=== PATIENT | female | born 1930 | race Caucasian/White ===

== ENCOUNTER → 2017-05-19 | Outpatient (CLI) | payer MEDICARE ==
[2017-05-19 11:13] LABS: ASPARTATE AMINO TRANSFERASE 23 U/L (15-37); BLOOD UREA NITROGEN 18 mg/dL (7-18)
== END | disposition home or self-care (01) ==
LOC: CFH 08:45
PROVIDERS: ATTEND Physician Assistant
DX: I11.0 Hypertensive heart disease with heart failure (principal); I50.42 Chronic combined systolic (congestive) and diastolic (congestive) heart failure; I48.0 Paroxysmal atrial fibrillation; Z95.0 Presence of cardiac pacemaker
CPT/HCPCS: 36415; 80053; 80061; 84436; 84443; 84481; 85610; 85730

== ENCOUNTER 2018-07-23 10:15 | Day surgery (SDC) | payer MEDICARE ==
[~2018-07-23] VITALS: Ht 166.4 cm; Wt 63.6 kg
[2018-07-23] MEDS ORDERED: SODIUM CHLORIDE 0.9% 1,000 ML IV SCH (10:49)
[2018-07-23] MEDS ORDERED: VANCOMYCIN PMX 1GM/200ML 200 ML IVPB ONE (11:00)
[2018-07-23] MEDS ORDERED: ERGO500017 PO (11:24)
[2018-07-23] MEDS ORDERED: SERT50TA5 PO (11:24)
[2018-07-23] MEDS ORDERED: AMIO200T42 PO (11:24)
[2018-07-23] MEDS ORDERED: FLUT9.9S PO (11:24)
[2018-07-23] MEDS ORDERED: OMEP-110 PO (11:24)
[2018-07-23] MEDS ORDERED: WARF2.5T73 PO (11:24)
[2018-07-23 11:30] LABS: BASOPHILS # (AUTO) 0.02 x10^3/uL (0-0.1); BASOPHILS % (AUTO) 1 % (0-1); EOSINOPHILS % (AUTO) 3 % (1-7); LYMPHOCYTES # (AUTO) 0.85 x10^3/uL (1-3.4); LYMPHOCYTES % (AUTO) 23 % (22-44); MD NO; MEAN CORPUSCULAR HEMOGLOBIN 33.1 pg (27.0-34.8); MEAN CORPUSCULAR VOLUME 97.3 fL (80-100); MEAN PLATELET VOLUME 8.6 fL (7.4-10.4); MONOCYTES # (AUTO) 0.37 x10^3/uL (0.2-0.8); MONOCYTES % (AUTO) 10 % (2-9); NEUTROPHILS # (AUTO) 2.33 x10^3/uL (1.8-6.8); NEUTROPHILS % (AUTO) 64 % (42-75); PLATELET COUNT 148 x10^3/uL (130-400); RED BLOOD COUNT 3.73 x10^6/uL (3.82-5.3); RED CELL DISTRIBUTION WIDTH 14.6 % (9.6-15.2)
[2018-07-23 11:40] LABS: INTERNATIONAL NORMALIZED RATIO 1.51 (0.93-1.1); PROTHROMBIN TIME 15.6 Seconds (9.6-11.5)
[2018-07-23] MEDS ORDERED: VANCOMYCIN 500 MG ONE (11:51)
[2018-07-23] MEDS ORDERED: FENTANYL PF 100 MCG/2ML ONE (11:51)
[2018-07-23] MEDS ORDERED: MIDAZOLAM 1 MG/ML, 2ML ONE (11:51)
[2018-07-23] MEDS ORDERED: LIDOCAINE/PF 1%, 30ML ONE (11:52)
[2018-07-23] MEDS ORDERED: VANCOMYCIN PMX 1GM/200ML 200 ML ONE (11:52)
[2018-07-23 12:41] LABS: ANION GAP 9 mmol/L (5-15); CALCIUM 8.7 mg/dL (8.5-10.1); CHLORIDE 110 mmol/L (98-107)
[2018-07-23 12:43] LABS: CREATININE 1.13 mg/dL (0.55-1.02)
== END 2018-07-23 15:18 | disposition home or self-care (01) ==
LOC: CACL 10:15
PROVIDERS: ATTEND Internal Medicine Cardiovascular Disease
DX: Z45.010 Encounter for checking and testing of cardiac pacemaker pulse generator [battery] (principal); I48.0 Paroxysmal atrial fibrillation; I11.0 Hypertensive heart disease with heart failure; I50.9 Heart failure, unspecified; Z79.82 Long term (current) use of aspirin; Z79.899 Other long term (current) drug therapy; Z72.89 Other problems related to lifestyle; Z95.0 Presence of cardiac pacemaker; Z79.01 Long term (current) use of anticoagulants; Z88.0 Allergy status to penicillin
CPT/HCPCS: 33228; 36415; 80048; 85025; 85610; 93005; 99156; C1785; J2250; J3010; J3370; J3490